=== PATIENT | male | born 1955 | race Caucasian/White ===

== ENCOUNTER 2021-02-21 05:43 | Emergency (ER) | payer MEDICARE ==
--- NOTE | 2021-02-21 05:53 | EDM.PDOC ---
ED HPI GENERAL MEDICAL PROBLEM - General Chief Complaint: Respiratory Problem Stated Complaint: MEDICAL VIA [place] Time Seen by Provider: 02/21/21 05:45 Source of Information: Reports: Patient History Limitations: Reports: No Limitations - History of Present Illness INITIAL COMMENTS - FREE TEXT/NARRATIVE: Is a 65-year-old male presenting to the ER via [facility] after having a syncopal episode while accompanying his to the hospital and another ambulance for a syncopal episode. Scott has been feeling ill since just before when he thought he had a sinus infection. He has had headache, fever and chills on and off, loss of taste and smell, cough with shortness of breath, diminished appetite and some generalized weakness. They have been managing at home. He is not vaccinated for COVID-19. He did have a large family gathering for the holidays. EMS was originally called out to the house for the who had a syncopal episode in the bathroom. As it is currently snowing heavily and the patient does not have a four-wheel drive vehicle he inquired about having the ambulance bring him to the hospital with the and then while being transported he to became symptomatic and had a syncopal episode necessitating a second EMS crew to intercept with the first ambulance and bring him separately to the hospital. An IV was established by EMS but he quickly rebounded with his pressures and his oxygenation. His blood pressure is currently 142/85 with a pulse of 77 and an SPO2 of 93% on room air. - Related Data Allergies Allergy/AdvReac Type Severity Reaction Status Date / Time No Known Allergies Allergy Verified 02/21/21 05:58 Home Meds: Home Meds Tamsulosin HCl [Flomax] 1 tab PO DAILY 02/21/21 [History] ED ROS GENERAL - Review of Systems Review Of Systems: See Below Constitutional: Reports: Fever, Chills, Malaise, Weakness, Decreased Appetite, Other (Loss of taste and smell) HEENT: Reports: Sinus Problem, Throat Pain Respiratory: Reports: Shortness of Breath, Cough Cardiovascular: Reports: Syncope Endocrine: Reports: Fatigue GI/Abdominal: Reports: Decreased Appetite : Reports: No Symptoms Musculoskeletal: Reports: Muscle Pain Skin: Reports: No Symptoms Neurological: Reports: Headache, Syncope Psychiatric: Reports: No Symptoms Hematologic/Lymphatic: Reports: No Symptoms Immunologic: Reports: No Symptoms ED EXAM, GENERAL - Physical Exam Exam: See Below Exam Limited By: No Limitations General Appearance: Alert, Anxious, Mild Distress Eye Exam: Bilateral Eye: EOMI, PERRL Nose: Nasal Swelling, Nasal Drainage, Clear Rhinorrhea Throat/Mouth: Normal Inspection, Normal Oropharynx, Normal Voice, No Airway Compromise Head: Atraumatic, Normocephalic Neck: Normal Inspection. No: Lymphadenopathy (R), Lymphadenopathy (L) Respiratory/Chest: No Accessory Muscle Use, Crackles (Diffuse crackles in the bases). No: Rales, Wheezing, Retractions Cardiovascular: Normal Peripheral Pulses, Regular Rate, Rhythm, No Murmur Peripheral Pulses: 2+: Radial (L), Radial (R) GI/Abdominal: Normal Bowel Sounds, Soft, Non-Tender. No: Guarding, Rigid, Rebound Back Exam: Normal Inspection Extremities: Normal Inspection, Normal Range of Motion Neurological: Alert, Oriented, Normal Cognition, No Motor/Sensory Deficits Psychiatric: Normal Affect Skin Exam: Warm, Dry #1 Interpretation EKG Date: 02/21/21 Time: 06:01 Rhythm: NSR Rate (Beats/Min): 69 Cunningham: Normal P-Wave: Present QRS: Normal ST-T: Normal QT: Normal Comparison: NA - No Prior EKG Course - Vital Signs Last Recorded V/S: Last Vital Signs Temp 36.7 C 02/21/21 05:54 Pulse 70 02/21/21 05:54 Resp 16 02/21/21 05:54 BP 142/85 H 02/21/21 05:54 Pulse Ox 95 02/21/21 05:54 - Orders/Labs/Meds Orders: Active Orders 24 hr Category Date Time Status Chest 1V Frontal [CR] Stat Exams 02/21/21 05:45 Taken C-REACTIVE PROTEIN [CHEM] Stat Lab 02/21/21 05:50 Received COMPREHENSIVE METABOLIC PN,CMP [CHEM] Stat Lab 02/21/21 05:50 Received FERRITIN [CHEM] Stat Lab 02/21/21 05:50 Received LACTATE DEHYDROGENASE,LDH [CHEM] Stat Lab 02/21/21 05:50 Received Isolation [COMM] Stat Oth 02/21/21 05:46 Ordered EKG 12 Lead [EK] Routine Ther 02/21/21 05:45 Ordered Labs: Laboratory Tests 02/21/21 02/21/21 02/21/21 Range/Units 05:50 05:50 05:50 WBC 10.0 (4.5-11.0) K/uL RBC 4.23 L (4.30-5.90) M/uL Hgb 13.6 (12.0-15.0) g/dL Hct 39.2 L (40.0-54.0) % MCV 93 (80-98) fL MCH 32 H (27-31) pg MCHC 35 (32-36) % Plt Count 235 (150-400) K/uL Neut % (Auto) 79.4 H (36-66) % Lymph % (Auto) 12.1 L (24-44) % Iron % (Auto) 7.7 H (2-6) % Eos % (Auto) 0.2 L (2-4) % Baso % (Auto) 0.6 (0-1) % D-Dimer, Quantitative 882.53 H (0.0-500.0) ng/mL Lactic Acid (0.4-2.0) mmol/L Procalcitonin ng/mL Influenza Type A RNA Negative (NEGATIVE) RSV RNA (INAAT) Negative (NEGATIVE) Influenza Type B RNA Negative (NEGATIVE) SARS-CoV-2 RNA (RENEE) Positive H (NEGATIVE) 02/21/21 02/21/21 Range/Units 05:50 05:50 WBC (4.5-11.0) K/uL RBC (4.30-5.90) M/uL Hgb (12.0-15.0) g/dL Hct (40.0-54.0) % MCV (80-98) fL MCH (27-31) pg MCHC (32-36) % Plt Count (150-400) K/uL Neut % (Auto) (36-66) % Lymph % (Auto) (24-44) % Iron % (Auto) (2-6) % Eos % (Auto) (2-4) % Baso % (Auto) (0-1) % D-Dimer, Quantitative (0.0-500.0) ng/mL Lactic Acid 1.3 (0.4-2.0) mmol/L Procalcitonin < 0.05 ng/mL Influenza Type A RNA (NEGATIVE) RSV RNA (INAAT) (NEGATIVE) Influenza Type B RNA (NEGATIVE) SARS-CoV-2 RNA (RENEE) (NEGATIVE) - Radiology Interpretation Free Text/Narrative:: The 1 view chest x-ray on Scott showing patchy groundglass infiltrates bilatera lly consistent with acute Covid pneumonitis. - Re-Assessments/Exams Free Text/Narrative Re-Assessment/Exam: 02/21/21 06:43 since labs showing a normal CBC with a leukocyte count of 10.0, hemoglobin of 13.6 and a platelet count of 235,000. The patient is positive for COVID-19 but negative for influenza and RSV. The chest x-ray 1 view shows bilateral patchy groundglass infiltrates consistent with Covid pneumonitis. 02/21/21 06:44 the patient's procalcitonin is less than 0.05 and his D-dimer is elevated at 882. 02/21/21 06:55 the remainder of the patient's labs show a lactate of 1.3, LDH of 219, ferritin of 1522, D-dimer of 882, C-reactive protein of 9.73 and as mentioned above a procalcitonin of less than 0.05. The comprehensive metabolic panel showed a sodium 138, potassium 3.5, chloride of 103, bicarbonate of 27, BUN of 12 with a creatinine of 1.0 and a glucose of 111. The calcium was a little low at 8.2, AST was 30, ALT is 52 and alkaline phosphatase is 72. By exam, chest x-ray, and now test, the patient has COVID-19 with bilateral pneumonitis. He is beyond the 10-day window to do monoclonal therapy. He is not requiring any oxygen supplementation requiring hospitalization at this time. Patient is instructed to remain in isolation until his symptoms evan and return to the ED should he develop significant worsening of his shortness of breath. At this time I believe he is suitable for discharge home in satisfactory condition. He should continue to push fluids to remain hydrated despite not having an appetite. Departure - Departure Time of Disposition: 06:58 Disposition: Home, Self-Care 01 Clinical Impression: Vasovagal syncope, COVID-19, Pneumonia due to COVID-19 virus - Discharge Information Instructions: COVID-19: What to Do If You Are Sick- [facility] (06/03/2020), 10 Things You Can Do to Manage Your COVID-19 Symptoms at Home - [facility] (10/02/2020), What You Should Know About COVID-19 to Protect Yourself and Others - CDC Referrals: PCP,None [Primary Care Provider] - Forms: ED Department Discharge Care Plan Goals: Your work-up today shows that yes you do in fact have COVID-19 but unfortunately you are outside the window to be eligible for the monoclonal antibody therapy. At this point it is just supportive care. I do not believe that she requires hospitalization at this time as your oxygen levels are fine without supplemental oxygen. Of course this can certainly change and we would need to reevaluate you should you become more short of breath. You should maintain isolation from others though as you are still considered contagious while symptomatic. Sepsis Event Note (ED) - Focused Exam Vital Signs: Vital Signs Temp Pulse Resp BP Pulse Ox 02/21/21 05:54 36.7 C 70 16 142/85 H 95 - My Orders Last 24 Hours: My Active Orders 02/21/21 05:45 Chest 1V Frontal [CR] Stat EKG 12 Lead [EK] Routine 02/21/21 05:46 Isolation [COMM] Stat 02/21/21 05:50 C-REACTIVE PROTEIN [CHEM] Stat COMPREHENSIVE METABOLIC PN,CMP [CHEM] Stat FERRITIN [CHEM] Stat LACTATE DEHYDROGENASE,LDH [CHEM] Stat - Assessment/Plan Last 24 Hours: My Active Orders 02/21/21 05:45 Chest 1V Frontal [CR] Stat EKG 12 Lead [EK] Routine 02/21/21 05:46 Isolation [COMM] Stat 02/21/21 05:50 C-REACTIVE PROTEIN [CHEM] Stat COMPREHENSIVE METABOLIC PN,CMP [CHEM] Stat FERRITIN [CHEM] Stat LACTATE DEHYDROGENASE,LDH [CHEM] Stat
[2021-02-21 06:43] LABS: CORONAVIRUS COVID-19 NAA POSITIVE (NEGATIVE)
--- NOTE | 2021-02-22 10:42 | CR ---
CHEST: Portable 02/21/2021 at 6:11 AM CLINICAL HISTORY:Dyspnea COMPARISON:None FINDINGS: There is patchy bilateral infiltrate bilaterally. Heart size and pulmonary vascular are normal. There are scattered granulomata. Impression: Patchy bilateral infiltrate-like densities may represent pneumonia or pneumonitis
== END 2021-02-21 07:17 | disposition home or self-care (01) ==
LOC: JP.ED 05:43
DX: U07.1 COVID-19 (principal); J12.82 Pneumonia due to coronavirus disease 2019; R55 Syncope and collapse; Z79.899 Other long term (current) drug therapy
CPT/HCPCS: 0241U; 36415; 71045; 71045-26; 80053; 82728; 83605; 83615; 84145; 85025; 85379; 86140; 93005; 99285-25

== ENCOUNTER 2021-08-02 12:36 | Emergency (ER) | payer MEDICARE ==
[2021-08-02] MEDS ORDERED: Bacitracin Oint 1 GM U/D Packet TOP ONE (14:49)
[2021-08-02] MEDS ORDERED: Lidocaine 1% 5 ML VIAL INJECT ONE (14:49)
[2021-08-02] MEDS ORDERED: Diphtheria,Pertussis(Acell),Tetanus Vaccine 0.5 ML Syringe IM ONE (15:51)
== END 2021-08-02 16:09 | disposition home or self-care (01) ==
LOC: JP.ED 12:36
DX: S61.217A Laceration without foreign body of left little finger without damage to nail, initial encounter (principal); Z23 Encounter for immunization; W23.1XXA Caught, crushed, jammed, or pinched between stationary objects, initial encounter
CPT/HCPCS: 12002; 73140-26-F4; 73140-F4; 90471; 90715; 99281; 99283-25